=== PATIENT | male | born 1975 | race Two or more races ===

== ENCOUNTER 2020-04-12 10:27 | Emergency (ER) | payer OTHER ==
[~2020-04-12] VITALS: Ht 160 cm; Wt 70.5 kg
[2020-04-12] MEDS ORDERED: MORPHINE SULFATE 4 MG/ML VIAL. ONE (10:41)
[2020-04-12] MEDS ORDERED: IV NORMAL SALINE 1000ML BAG 1,000 ML IV ONE (10:45)
[2020-04-12] MEDS ORDERED: MORPHINE SULFATE 4 MG/ML VIAL. IV ONE (10:45)
--- NOTE | 2020-04-12 10:50 | PHYS DOC ---
General Adult EDM: Chief Complaint: PARTIAL AMPUTATION/AVULSION HPI: HPI: Patient is a 44 year old male who was brought here from work for right hand injury. 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 Patient said the amputated parts, were crushed into pieces and still in stuck in the machine at work. Patient's last meal was at 6:30 am this morning. Patient is not up to date on his tetanus status. Patient is not allergic to anything. He denied SI OR HI. No recent travel, no COVID-19 exposure Review of Systems: Review of Systems: Constitutional: Denies fever or chills. [] Eyes: Denies change in visual acuity. [] HENT: Denies nasal congestion or sore throat. [] Respiratory: Denies cough or shortness of breath. [] Cardiovascular: Denies chest pain or edema. [] GI: Denies abdominal pain, nausea, vomiting, bloody stools or diarrhea. [] : Denies dysuria. [] Musculoskeletal: Denies back pain, POSITIVE FOR RIGHT FINGERS AMPUTATION AND PAIN. Integument: Denies rash. [] Neurologic: Denies headache, focal weakness or sensory changes. [] Endocrine: Denies polyuria or polydipsia. [] Lymphatic: Denies swollen glands. [] Psychiatric: Denies depression or anxiety. [] Heart Score: Risk Factors: Risk Factors: DM, Current or recent (<one month) smoker, HTN, HLP, family history of CAD, obesity. Risk Scores: Score 0 - 3: 2.5% MACE over next 6 weeks - Discharge Home Score 4 - 6: 20.3% MACE over next 6 weeks - Admit for Clinical Observation Score 7 - 10: 72.7% MACE over next 6 weeks - Early Invasive Strategies Current Medications: Current Medications Medications (Trade) Dose Ordered Sig/Sedrick Start Time Stop Time Status Last Admin Dose Admin Cefazolin Sodium/ Dextrose 50 ml @ 100 mls/hr 1X ONCE 04/12/20 10:45 04/12/20 11:14 Diphtheria/ Tetanus/Acell Pertussis (ADACEL TDap SYRINGE) 0.5 ml ONCE ONCE 04/12/20 11:00 04/12/20 11:01 UNV Morphine Sulfate (Morphine Sulfate) 4 mg 1X ONCE 04/12/20 10:45 04/12/20 10:46 DC Sodium Chloride 1,000 ml @ 1,000 mls/hr 1X ONCE 04/12/20 10:45 04/12/20 11:44 Allergies: Allergies: Allergies Coded Allergies Type Severity Reaction Last Updated Verified No Known Drug Allergies 04/12/20 No Physical Exam: PE: Constitutional: Well developed, well nourished, MILD acute distress, non-toxic appearance. [] HENT: Normocephalic, atraumatic, bilateral external ears normal, oropharynx moist, no oral exudates, nose normal. [] Eyes: PERRLA, EOMI, conjunctiva normal, no discharge. [] Neck: Normal range of motion, no tenderness, supple, no stridor. [] Cardiovascular:Heart rate regular rhythm, no murmur [] Lungs & Thorax: Bilateral breath sounds clear to auscultation [] Abdomen: Bowel sounds normal, soft, no tenderness, no masses, no pulsatile masses. [] Skin: Warm, dry, no erythema, no rash. [] Back: No tenderness, no CVA tenderness. [] Extremities: FINGERS AMPUTATION AT THE PROXIMAL INTERPHALANGEAL JOINTS OF THE RIGHT INDEX, MIDDLE AND RING FINGERS, BLEEDING...There is no other injuries. Neurologic: Alert and oriented X 3, normal motor function, normal sensory function, no focal deficits noted. [] Psychologic: Affect normal, judgement normal, mood normal. [] Current Patient Data: Labs: Current Medications Medications (Trade) Dose Ordered Sig/Sedrick Route PRN Reason Start Time Stop Time Status Last Admin Dose Admin Cefazolin Sodium/ Dextrose 50 ml @ 100 mls/hr 1X ONCE IV 04/12/20 10:45 04/12/20 11:14 Morphine Sulfate (Morphine Sulfate) 4 mg 1X ONCE IV 04/12/20 10:45 04/12/20 10:46 DC 04/12/20 10:45 Sodium Chloride 1,000 ml @ 1,000 mls/hr 1X ONCE IV 04/12/20 10:45 04/12/20 11:44 04/12/20 10:45 Diphtheria/ Tetanus/Acell Pertussis (ADACEL TDap SYRINGE) 0.5 ml ONCE ONCE VAX IM 04/12/20 11:00 04/12/20 11:01 DC Hydromorphone HCl (Dilaudid) 2 mg 1X ONCE IV 04/12/20 11:15 04/12/20 11:16 EKG: EKG: [] Radiology/Procedures: Radiology/Procedures: [facility] [address] [place] [address] IMAGING REPORT Signed PATIENT: AVERY MURPHYOUNT: [id number] : 1975 LOCATION: ER AGE: 44 SEX: M EXAM STATUS: PRE ER ORD. PHYSICIAN: KWABENA FONG DO REASON: fingers amputation PROCEDURE: HAND RIGHT 3V HAND RIGHT 3V History: Reason: fingers amputation / Spl. Instructions: / History: Technique: 3 views right hand. Comparison: None. Findings: Acute amputation of the second phalanx to the level of the proximal phalanx, third phalanx to the level of the proximal phalanx and fourth phalanx head level of the mid phalanx. Partially detached soft tissue component of the likely third digit with comminuted fractures. Punctate densities projecting over the fingers, may represent foreign bodies. Impression: 1. Acute amputations of the second, third and fourth phalanges. 2. Punctate densities projecting over the distal hand and fingers, may represent foreign bodies. Electronically signed by: Owen Watts DO (04/12/2020 11:11 AM) [id number] DICTATED and SIGNED BY: OWEN WATTS DO DATE: 04/12/20 1111 Course & Med Decision Making: Course & Med Decision Making Pertinent Labs and Imaging studies reviewed. (See chart for details) Patient is a 44-year-old male who sustained amputation of right index, middle and fourth fingers at the proximal interphalangeal joints, need to be transferred to [facility], to be evaluated by hand surgeon there. Dr. Mili Manley, Hand surgeon, accepted patient for transfer to [facility] ER. Rosa Disclaimer: Rosa Disclaimer: This electronic medical record was generated, in whole or in part, using a voice recognition dictation system. Departure Departure Impression: Primary Impression: Traumatic amputation of right middle finger Additional Impressions: Traumatic amputation of right index finger Amputation of right ring finger Disposition: 02 TRANSFER T-[facility] (Transferred to [facility], ACCEPTED BY DR. MILI MANLEY) Condition: STABLE Justicifation of Admission Dx: Justifications for Admission: Justification of Admission Dx: N/A KWABENA FONG DO Apr 12, 2020 10:50
[2020-04-12] MEDS ORDERED: DIPH,PERTUSS(ACELL),TET VAC/PF 0.5 ML SYRINGE. VAX IM ONE (11:00)
[2020-04-12 11:09] LABS: BASO # 0.1 x10^3/uL (0.0-0.2); BASO % 1 % (0-3); EOS # 0.1 x10^3/uL (0.0-0.7); EOS % 2 % (0-3); HEMATOCRIT 44.2 % (39.0-53.0); LYMPH # 2.7 x10^3/uL (1.0-4.8); LYMPH % 35 % (24-48); MEAN CORPUSCULAR HEMOGLOBIN 31 pg (25-35); MEAN CORPUSCULAR HGB CONC 34 g/dL (31-37); MEAN CORPUSCULAR VOLUME 93 fL (79-100); MONO # 0.8 x10^3/uL (0.0-1.1); MONO % 10 % (0-9); NEUT % 52 % (31-73); PLATELET COUNT 353 x10^3/uL (140-400); RED BLOOD COUNT 4.78 x10^6/uL (4.30-5.70); RED CELL DISTRIBUTION WIDTH 14.1 % (11.5-14.5); WHITE BLOOD COUNT 7.7 x10^3/uL (4.0-11.0)
--- NOTE | 2020-04-12 11:14 | RAD ---
HAND RIGHT 3V History: Reason: fingers amputation / Spl. Instructions: / History: Technique: 3 views right hand. Comparison: None. Findings: Acute amputation of the second phalanx to the level of the proximal phalanx, third phalanx to the level of the proximal phalanx and fourth phalanx head level of the mid phalanx. Partially detached soft tissue component of the likely third digit with comminuted fractures. Punctate densities projecting over the fingers, may represent foreign bodies. Impression: 1. Acute amputations of the second, third and fourth phalanges. 2. Punctate densities projecting over the distal hand and fingers, may represent foreign bodies. Electronically signed by: Owen Watts DO (04/12/2020 11:11 AM) [id number]
[2020-04-12 11:15] LABS: CALCIUM 8.5 mg/dL (8.5-10.1); CREATININE 1.2 mg/dL (0.7-1.3); GFR 66.4; POTASSIUM 3.8 mmol/L (3.5-5.1)
[2020-04-12] MEDS ORDERED: HYDROmorphone 2 MG/ML VIAL IV ONE (11:15)
[2020-04-12 11:22] LABS: ALBUMIN 4.2 g/dL (3.4-5.0); ALBUMIN/GLOBULIN RATIO 1.2 (1.0-1.7); TOTAL BILIRUBIN 0.2 mg/dL (0.2-1.0); TOTAL PROTEIN 7.6 g/dL (6.4-8.2)
[2020-04-12 11:30] VITALS: BP 177/105
[2020-04-12 11:56] LABS: % BANDS 4 % (0-9); % EOS 1 % (0-5); % LYMPHS 37 % (24-48); % MONOS 6 % (0-10); % SEGS 52 % (35-66)
[2020-04-12 11:57] LABS: PLT ESTIMATE ADEQUATE (ADEQUATE)
== END 2020-04-12 11:42 | disposition short-term general hospital (02) ==
LOC: ER 10:27
DX: S68.112A Complete traumatic metacarpophalangeal amputation of right middle finger, initial encounter (principal); S68.120A Partial traumatic metacarpophalangeal amputation of right index finger, initial encounter; S68.124A Partial traumatic metacarpophalangeal amputation of right ring finger, initial encounter; Z20.818 Contact with and (suspected) exposure to other bacterial communicable diseases; W31.89XA Contact with other specified machinery, initial encounter; Y93.89 Activity, other specified; Y92.89 Other specified places as the place of occurrence of the external cause; Y99.8 Other external cause status
CPT/HCPCS: 36415; 73130; 80053; 85007; 85025; 90471; 90715; 96365; 96375; 99285; J0690; J1170; J2270; J7030; U0003